=== PATIENT | female | born 1975 | race Caucasian/White ===

== ENCOUNTER 2018-06-15 20:05 | Emergency (ER) | payer OTHER | END 2018-06-15 22:53 | disposition home or self-care (01) | LOC: FTE 20:05 | DX: S99.912A Unspecified injury of left ankle, initial encounter (principal); W10.9XXA Fall (on) (from) unspecified stairs and steps, initial encounter; Y92.9 Unspecified place or not applicable | CPT/HCPCS: 73630; 73630-LT; 99283-25 ==